=== PATIENT | male | born 1970 | race Caucasian/White ===

== ENCOUNTER 2016-11-22 18:40 | Emergency (ER) | payer BC, OTHER ==
[~2016-11-22] VITALS: Ht 185.4 cm; Wt 106.1 kg
[2016-11-22] MEDS ORDERED: FLUO40CA9 PO (19:06)
[2016-11-22] MEDS ORDERED: GABA300C10 PO (19:06)
[2016-11-22] MEDS ORDERED: ZOFRAN IV STA (19:39)
[2016-11-22] MEDS ORDERED: NS 1000ML 1,000 ML STA (19:39)
--- NOTE | 2016-11-22 19:39 | ER.PDOC ---
General Chief Complaint: General Complaint Stated Complaint: DIFFICULTY SWALLOWING,VOMITING Time seen by MD: 19:30 Source: patient Exam Limitations: no limitations History of Present Illness Initial Comments Pt has been feeling sick for over a month, dizzy, night sweats, fever, cough with green expectoration, nausea and vomiting yesterday and not eating today Timing/Duration: constant, getting worse Severity/Quality: severe Abdominal Pain Onset Location: Epigastric Associated Symptoms (vomiting): freq vomitng Allergies: Coded Allergies: hydromorphone (Verified Allergy, Unknown, 11/22/16) Home Meds Reported Medications Gabapentin 300 Mg [id number] Mg PO TID 11/22/16 Fluoxetine Hcl (Prozac)40 Mg [id number] Mg PO DAILY 11/22/16 Vital Signs First Vital Signs Date Time Temp Pulse Resp B/P Pulse Ox O2 Delivery O2 Flow Rate FiO2 11/22/16 18:56 98.0 73 16 96 11/22/16 19:03 149/94 Last Vital Signs Date Time Temp Pulse Resp B/P Pulse Ox O2 Delivery O2 Flow Rate FiO2 11/22/16 20:02 63 14 144/102 97 11/22/16 19:03 98.0 Past Medical History Surgical History: cholecystectomy Social History Smoking: non-smoker Alcohol Use: occasionally Drug Use: none Constitutional: see HPI EENTM: see HPI Respiratory: see HPI Cardiovascular: see HPI Gastrointestinal: see HPI Genitourinary: see HPI Musculoskeletal: see HPI Skin: see HPI Psychiatric/Neurological: see HPI Endocrine: see HPI Hematologic/Lymphatic: see HPI Physical Exam General Appearance: No Apparent Distress, WD/WN HEENT: PERRL/EOMI, Normal ENT Inspection, TMs Normal, Pharynx Normal Neck: Non-Tender, Full Range of Motion, Supple, Normal Inspection Respiratory: rhonchi (bilateral) Cardiovascular: Normal Peripheral Pulses, Regular Rate, Rhythm, No Edema, No Gallop, No JVD, No Murmur Gastrointestinal: Tenderness (epigastrium), Spleenomegaly Back: Normal Inspection, No CVA Tenderness, No Vertebral Tenderness Extremities: Normal Range of Motion, Non-Tender, Normal Inspection, No Pedal Edema, No Calf Tenderness, Normal Capillary Refill, Pelvis Stable Neurologic/Psychiatric: monitor and storage bin tender II-XII NML as Tested, No Motor/Sensory Deficits, Alert, Normal Mood/Affect, Oriented x 3 Skin: Normal Color, Warm/Dry Lymphatic: No Adenopathy Results/Orders Results/Orders Laboratory Tests Test 11/22/16 00:00 11/22/16 19:48 Urine Collection Type Unknown Urine Color Yellow (YELLOW) Urine Appearance Clear (CLEAR) Urine Bilirubin NegativeMG/DL (NEGATIVE) Urine Ketones Negative (NEGATIVE) Urine Specific Dickens 1.020 (1.005-1.035) Urine pH 6.5 (5.0-6.0) Urine Protein Negative (NEGATIVE) Urine Urobilinogen Normal (NEGATIVE) Urine Nitrate Negative (NEGATAIVE) Urine Leukocyte Esterase Negative (NEGATIVE) Urine Blood Negative (NEGATIVE) Urine Glucose Normal (NEGATIVE) White Blood Count 8.010^3/uL (4.5-11.0) Red Blood Count 4.8810^6/uL (4.50-5.90) Hemoglobin 14.9g/dL (13.9-16.3) Hematocrit 44.0% (37.0-53.0) Mean Corpuscular Volume 90.2fL (78-100) Mean Corpuscular Hemoglobin 30.5pg (26-34) Mean Corpuscular Hemoglobin Concent 33.9g/dL (33-37) Red Cell Distribution Width 13.2% (11.5-14.5) Platelet Count 32495^3/uL (150-400) Mean Platelet Volume 8.8fL (7.8-11.0) Neutrophils (%) (Auto) 57.7% (41.0-85.0) Lymphocytes (%) (Auto) 28.0% (24.0-44.0) Monocytes (%) (Auto) 11.5% (5.0-12.0) Neutrophils # (Auto) 4.610^3/uL (1.8-7.7) Lymphocytes # (Auto) 2.210^3/uL (1.0-4.8) Monocytes # (Auto) 0.910^3/uL (0.3-0.8) Absolute Immature Granulocyte (auto 0.0110^3 u/L (0-2) Eosinophils % 1.6% (0.0-5.0) Basophils % 1.1% (0.0-0.2) Basophils # 0.110^3/uL (0.0-0.1) Eosinophil Count 0.110^3/uL (0.0-0.2) Sodium Level 140mmol\L (132-145) Potassium Level 3.7mmol/L (3.6-5.2) Chloride Level 103.0mmol/L (96-109) Carbon Dioxide Level 30.1mmol/L (20.0-32) Anion Gap 10.6 Blood Urea Nitrogen 8mg/dL (7-18) Creatinine 1.04mg/dL (0.59-1.40) Estimat Glomerular Filtration Rate >60 BUN/Creatinine Ratio 7.0 Glucose Level 84mg/dL (70-110) Calculated Osmolality 286.8 Calcium Level 8.9mg/dL (8.4-10.5) Total Bilirubin 0.3mg/dL (0.2-1.0) Aspartate Amino Transf (AST/SGOT) 23U/L (0-35) Alanine Aminotransferase (ALT/SGPT) 28U/L (12-78) Alkaline Phosphatase 58U/L (50-136) Total Protein 8.0g/dL (6.4-8.2) Albumin 3.7g/dL (3.4-5.0) Globulin 4.3 Amylase Level 59U/L (25-115) Lipase 120U/L (114-286) Percent Immature Gran (Cell Imm) 0.10% (0.00-0.50) Administered Medications Medications (Trade) Dose Ordered Sig/Hang Route PRN Reason Start Time Stop Time Status Last Admin Dose Admin Sodium Chloride (NS 1000ml) 1,000 ml @ 1,200 mls/hr Q50M STAT IV 11/22/16 19:39 11/22/16 20:28 DC 11/22/16 19:58 Ondansetron HCl (Zofran) 4 mg STAT STAT IV 11/22/16 19:39 11/22/16 19:41 DC 11/22/16 19:58 Departure Time of Disposition: 21:37 Disposition: 01 HOME, SELF-CARE Impression: Primary Impression: Nausea & vomiting Additional Impressions: Dizziness Gastroenteritis Bronchitis Condition: Stable Patient Instructions: Dizziness, [id number] Referrals: GIBSON KAUR (PCP) PRIMARY CARE PROVIDER CHARLI LAWRENCE MD Nov 22, 2016 19:39
[2016-11-22] MEDS ORDERED: NS 1000ML 1,000 ML ONE (19:50)
[2016-11-22] MEDS ORDERED: ZOFRAN ONE (19:51)
[2016-11-22 19:52] LABS: BASOPHIL # 0.1 10^3/uL (0.0-0.1); BASOPHIL % 1.1 % (0.0-0.2); EOSINOPHIL # 0.1 10^3/uL (0.0-0.2); EOSINOPHIL % 1.6 % (0.0-5.0); HEMOGLOBIN 14.9 g/dL (13.9-16.3); LYMPHOCYTES # 2.2 10^3/uL (1.0-4.8); MEAN CELL HGB 30.5 pg (26-34); MEAN CELL HGB CONCENTRATION 33.9 g/dL (33-37); MEAN CORP VOLUME 90.2 fL (78-100); MEAN PLATELET VOLUME 8.8 fL (7.8-11.0); MONOCYTES # 0.9 10^3/uL (0.3-0.8); MONOCYTES % 11.5 % (5.0-12.0); NEUTROPHIL # 4.6 10^3/uL (1.8-7.7); NEUTROPHILS % 57.7 % (41.0-85.0); RED CELL DISTRIBUTION WIDTH 13.2 % (11.5-14.5)
--- NOTE | 2016-11-22 19:55 | NUR ---
status pt denies being able to give UA at this time. provided with UA cup
--- NOTE | 2016-11-22 20:00 | DIREP ---
PROCEDURE:CHEST 1 VIEW COMPARISON:None. INDICATIONS:cough, left sided chest pain FINDINGS: LUNGS/PLEURA:No significant pulmonary parenchymal abnormalities. No effusions. VASCULATURE:Normal. Unremarkable pulmonary vasculature. CARDIAC:Normal. No cardiac silhouette abnormality or cardiomegaly. MEDIASTINUM:Normal. No visible mass or adenopathy. BONES:No acute pathology. DJD of the right a.c. joint. OTHER:Negative. CONCLUSION:No acute cardiac or pulmonary disease. Dictated by: Bubba Reyes M.D. on 11/22/2016 at 07:59 PM
--- NOTE | 2016-11-22 20:03 | PCM.OCF ---
Observation Criteria Forms VOMITING: OBSERVATION CARE USE THIS FORM ONLY WHEN INPATIENT ADMISSION CRITERIA ARE NOT MET. (Place X for any and all applicable criteria): Placement for observation care is indicated for patient with ANY ONE of the following(1)(2)(3)(4)(5)(6): []I. Hemodynamic instability []II. Vomiting refractory to outpatient treatment (ie, precluding oral rehydration) []III. Electrolyte imbalance unable to be corrected in outpatient setting []IV. Inability to take necessary medication or fluids orally []V. Child whose situation includes ANY ONE of the following: []a) Clinical response to outpatient therapy uncertain []b) Outpatient supervision by parents or caregivers uncertain [X]. Other observation care needs ( Use General Criteria: Observation Care) The original [facility] content created by [facility] has been revised. The portions of the content which have been revised are identified through the use of italic text, and [facility] has neither reviewed nor approved the modified material. All other unmodified content is copyright [facility] [employer]. Please see references footnoted in the original [facility] [employer] edition 2016 Is Observation Criteria comple: YES CASSIUS HERNANDEZ [facility] Nov 22, 2016 20:03
[2016-11-22 20:11] LABS: ALANINE AMINOTRANSFERASE(ML) 28 U/L (12-78); ALKALINE PHOSPHATASE 58 U/L (50-136); ASPARTATE AMINO TRANSFERASE 23 U/L (0-35); CALCIUM 8.9 mg/dL (8.4-10.5); CARBON DIOXIDE 30.1 mmol/L (20.0-32); GLUCOSE 84 mg/dL (70-110)
[2016-11-22] MEDS ORDERED: NS 100ML 100 ML IV PRN (20:24)
--- NOTE | 2016-11-22 20:55 | PRM.ACF1 ---
Admission Criteria Forms VOMITING Clinical Indications for Admission to Inpatient Care ( Place 'X' for any and all applicable criteria): Admission is indicated for ANY ONE of the following(1)(2)(3): [ X]I. Inpatient admission required rather than observation care because of ANY ONE of the following: [ ]i) Hemodynamic instability that is severe or persistent [X ]ii) Vomiting that is severe or persistent [ ]iii) Severe electrolyte abnormalities requiring inpatient care [ ]iv) Severe pain requiring acute inpatient management [ ]v) High fever or infection requiring inpatient admission as indicated by ANY ONE of the following(7)(8): [ ]1) Appropriate outpatient or observation care antimicrobial treatment unavailable, not effective, or not feasible [ ]2) Documented bacteremia [ ]3) Temp >104.9 degrees F (40.5 degrees C) (oral) [ ]4) Temp >103.1 degrees F (39.5 C) (oral) or <96.8 degrees F (36 C) (rectal) that does not respond to all emergency treatment measures [ ]vi) Acute renal failure [ ]vii) IV fluid to replace significant ongoing losses (greater than 3 L/m2 per day) [ ]viii) Parenteral nutrition regimen that must be implemented on inpatient basis [ ]ix) Other condition, treatment or monitoring requiring inpatient admission [ ]II. Complete or partial gastrointestinal obstruction [ ]III. Other cause of vomiting requiring hospitalization (eg, poisoning, increased intracranial pressure) [ ]IV. Vomiting due to significant metabolic derangement (eg, severe hypercalcemia, diabetic ketoacidosis) Extended stay beyond goal length of stay may be needed for(1)(4): [ ]a) Severe vomiting [ ]b) Persistent vomiting, vital sign changes, severe electrolyte imbalance , or diagnosed cause of vomiting that requires continued hospitalization (eg, gastrointestinal obstruction , increased intracranial pressure) [ ]c) Surgery to treat identified causes of vomiting (eg, bowel obstruction , intracranial process) [ ]d) Comorbid illness that requires inpatient care (eg, acute heart failure , renal failure) [ ]e) Need for inpatient endoscopy The original [facility] [employer] content created by [employer] has been revised. The portions of the content which have been revised are identified through the use of italic text or in bold, and [facility] [employer] has neither reviewed nor approved the modified material. All other unmodified content is copyright [employer]. Please see references footnoted in the original [facility] edition 2016 Is [facility] added/comple: PENDING CASSIUS HERNANDEZ [facility] Nov 22, 2016 20:55
--- NOTE | 2016-11-22 21:00 | NUR ---
UA URINE COLLECTEDAND SENT TO LAB
--- NOTE | 2016-11-22 21:04 | NUR ---
CT PATIENT TO CT AMBULATORY
--- NOTE | 2016-11-22 21:09 | NUR ---
CT PATIENT RETURN TO ROOM FROM CT AMBULATORY WITHOUT ANY APPARTENT DISTRESS
[2016-11-22 21:18] LABS: BILIRUBIN,URINE NEGATIVE (NEGATIVE); UROBILINOGEN,URINE NORMAL (NEGATIVE)
[2016-11-22 21:22] LABS: APPEARANCE,URINE CLEAR (CLEAR); UA COLOR YELLOW (YELLOW)
--- NOTE | 2016-11-22 21:31 | DIREP ---
PROCEDURE:CT ABDOMEN/PELVIS W/ CONTRAST COMPARISON:None. INDICATIONS:abdominal pain, nausea, vomiting TECHNIQUE:Axial images were created through the abdomen and pelvis with non-ionic intravenous contrast material. No oral contrast was administered. Sagittal and coronal reconstructions were performed from source images. FINDINGS: LUNG BASES:Normal. No visible pulmonary or pleural disease. LIVER:Normal. No significant liver lesions are identified. BILIARY:Cholecystectomy clips. PANCREAS:Normal. No lesion, fluid collection, ductal dilatation, or atrophy. SPLEEN:Normal. No enlargement or focal lesion. ADRENALS:Normal. No mass or enlargement. URINARY TRACT:Normal. No focal lesions or hydronephrosis. AORTA/VASCULAR:Normal. No aneurysm. RETROPERITONEUM:Normal. No mass or adenopathy. BOWEL/MESENTERY:Normal. There is no intestinal obstruction, free fluid, free air or mesenteric inflammatory changes. The appendix is normal. ABDOMINAL WALL:Normal. No mass or hernia. PELVIC ORGANS:Normal. No visible mass. Pelvic organs appropriate for patient age. BONES:No acute pathology. Degenerative narrowing and osteophyte formation at the anterior margin of each SI joint. OTHER:Negative. CONCLUSION:Previous cholecystectomy. No acute pathology in the abdomen or pelvis. Dictated by: Bubba Reyes M.D. on 11/22/2016 at 09:27 PM
--- NOTE | 2016-11-22 21:53 | NUR ---
DISCHARGE DISCHARGE INSTRUCTIONS AND PRESCRIPTION MEDICATIONS DISCUSSED. PT VERBALIZED UNDERSTANDING. ENCOUARGED TO RETURN FOR ANY CONCERNS. IV WAS DC'D BY PT PRIOR TO DISCHARGE INSTRUCTIONS. PT'S FRIEND VERBALIZED TIP WAS INTACT.
== END 2016-11-22 21:53 | disposition home or self-care (01) ==
LOC: ER 18:40
DX: R42 Dizziness and giddiness (principal); K52.9 Noninfective gastroenteritis and colitis, unspecified; J40 Bronchitis, not specified as acute or chronic; Z88.5 Allergy status to narcotic agent; Z79.899 Other long term (current) drug therapy
CPT/HCPCS: 36415; 71010; 74177; 80053; 81002; 82150; 83690; 85025; 96361; 96374; 99284; J2405; J7030; Q9967; J7050; 71045

== ENCOUNTER 2018-11-01 14:01 | Emergency (ER) | payer OTHER ==
[~2018-11-01] VITALS: Ht 185.4 cm; Wt 96.2 kg
[~2018-11-01 14:01] MED LIST: FLUO40CA9 PO; GABA300C10 PO
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
[2018-11-01 14:17] VITALS: BP 172/113
[2018-11-01] MEDS ORDERED: TORADOL IM STA (14:34)
[2018-11-01] MEDS ORDERED: TORADOL ONE (14:41)
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
--- NOTE | 2018-11-01 15:09 | NUR ---
CAT SCAN PATIENT TO AND FROM CAT SCAN WITH JOSE FROM RADIOLOGY.
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
--- NOTE | 2018-11-01 15:26 | NUR ---
JENNIFER BAKER ON PHONE FOR PT CONSULT
[2018-11-01 15:30] VITALS: BP 178/106
[2018-11-01 15:59] VITALS: BP 172/113
== END 2018-11-01 15:49 | disposition home or self-care (01) ==
LOC: ER 14:01
DX: S32.029A Unspecified fracture of second lumbar vertebra, initial encounter for closed fracture (principal); S29.9XXA Unspecified injury of thorax, initial encounter; I10 Essential (primary) hypertension; Z88.5 Allergy status to narcotic agent; Z79.899 Other long term (current) drug therapy; V89.2XXA Person injured in unspecified motor-vehicle accident, traffic, initial encounter; Y93.89 Activity, other specified; Y92.488 Other paved roadways as the place of occurrence of the external cause; Y99.8 Other external cause status
CPT/HCPCS: 71101; 72131; 96372; 99285; J1885